=== PATIENT | female | born 1950 | race Caucasian/White ===

== ENCOUNTER → 2021-05-14 | Day surgery (SDC) | payer MEDICARE, OTHER ==
[~2021-05-14] VITALS: Ht 160 cm; Wt 81.2 kg
[~2021-05-14] MED LIST: BUMETANIDE0.5 MG PO; BUMEX1 MG PO; COQ-1030 MG PO; FOSAMAX70 MG PO; HUMULIN N100 UNIT/3 SC; HUMULIN R100 UNIT/2 SC; LIPITOR20 MG PO; PRINIVIL20 MG PO; SYNTHROID100 MCG PO; TOPROL XL 25MG25 MG PO; VITAMIN D34000 UNIT PO
[2021-05-14 07:30] LABS: HCT 41.4 % (37.0-47.0); HGB 13.8 g/dl (12.5-16.0); MCH 31.9 pg (25.0-31.0); MCHC 33.3 g/dL (32.0-36.0); MCV 95.8 fL (78.0-100.0); MPV 10.8 fL (6.0-9.5); RBC 4.32 M/uL (4.20-5.40); WBC 7.4 K/uL (4.0-10.5)
[2021-05-14 07:42] LABS: BILIRUBIN - TOTAL 0.5 mg/dL (0.2-1.0); CREATININE 0.91 mg/dL (0.51-0.95); GLOBULIN (CALCULATION) 3.9 g/dL; POTASSIUM 4.1 mmol/L (3.5-5.1); TOTAL PROTEIN 7.9 g/dL (6.4-8.2)
== END | disposition home or self-care (01) ==
LOC: FAS 06:55
PROVIDERS: Surgery
DX: Z12.11 Encounter for screening for malignant neoplasm of colon (principal); I10 Essential (primary) hypertension; E10.9 Type 1 diabetes mellitus without complications; R01.1 Cardiac murmur, unspecified; E03.9 Hypothyroidism, unspecified; E78.00 Pure hypercholesterolemia, unspecified; E78.5 Hyperlipidemia, unspecified; Z80.0 Family history of malignant neoplasm of digestive organs; Z82.49 Family history of ischemic heart disease and other diseases of the circulatory system; Z79.899 Other long term (current) drug therapy
CPT/HCPCS: 36415; 80053; J2704; J7120